=== PATIENT | male | born 1955 | race African-American/Black ===

== ENCOUNTER 2023-10-08 12:45 | Outpatient (CLI) | payer OTHER ==
[2023-10-08] MEDS ORDERED: Magnevist 469MG/ML 20 ML VIAL ONE (13:29)
== END 2023-10-08 12:46 | disposition home or self-care (01) ==
LOC: CSHSPEC 12:45
PROVIDERS: ATTEND Surgery
DX: C20 Malignant neoplasm of rectum (principal); C21.1 Malignant neoplasm of anal canal
CPT/HCPCS: 72197; A9579